=== PATIENT | male | born 2000 | race African-American/Black ===

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

== ENCOUNTER 2021-09-03 01:20 | Emergency (ER) | payer MEDICAID ==
[~2021-09-03] VITALS: Ht 182.9 cm; Wt 77.1 kg
[2021-09-03] MEDS ORDERED: HALOPERIDOL LACTATE INJ 5 MG/ML VIAL ONE (01:27)
[2021-09-03] MEDS ORDERED: diphenhydrAMINE HCL 50 MG/ML VIAL ONE (01:27)
[2021-09-03] MEDS ORDERED: LORAZEPAM INJ 2 MG/ML VIAL ONE (01:27)
[2021-09-03] MEDS ORDERED: diphenhydrAMINE HCL 50 MG/ML VIAL IM ONE (01:30)
[2021-09-03] MEDS ORDERED: HALOPERIDOL LACTATE INJ 5 MG/ML VIAL IM ONE (01:30)
[2021-09-03] MEDS ORDERED: LORAZEPAM INJ 2 MG/ML VIAL IM ONE (01:30)
--- NOTE | 2021-09-03 01:45 | NUR ---
[place] TO ER BED 13. YELLING, SCAREAMING AND DELIRIOUS. NOT IN RESP DISTRESS. BROUGHT IN FOR FOR INGESTING MUSHROOMS. PT WAS REPORTED TO HAVE BEEN CLIMBING UP THE APRTMENT [employer]ILDING [employer]. PT WAS BROUGHT IN WITH [employer] AT BEDSIDE ON RESTRAINTS. WAS AT THE BEDSIDE FOR EVAL. PT REMAIN ON 2 POINTS RESTRAINT WITH SITTER AT [facility].
[2021-09-03 01:57] LABS: BASOPHILS % (AUTO) 0.1 % (0.0-2.0); EOSINOPHILS % (AUTO) 0.2 % (0.0-6.0); HEMATOCRIT 45 % (39-51); HEMOGLOBIN 14.7 g/dL (13.5-17.5); LYMPHOCYTES # (AUTO) 1.4 K/uL (0.8-4.8); LYMPHOCYTES % (AUTO) 8.9 % (20.0-44.0); MEAN CORPUSCULAR HGB CONC 33 g/dl (31.0-36.0); MEAN CORPUSCULAR VOLUME 91 fL (80-96); MONOCYTES # (AUTO) 0.9 K/uL (0.1-1.30); MONOCYTES % (AUTO) 5.9 % (2.0-12.0); NEUTROPHILS # (AUTO) 12.9 K/uL (1.8-8.9); NEUTROPHILS % (AUTO) 84.9 % (43.0-81.0); PLATELET COUNT (AUTO) 245 K/uL (150-450); RED BLOOD CELL COUNT(AUTO) 4.92 MIL/uL (4.5-6.0); WHITE BLOOD COUNT (AUTO) 15.2 K/uL (4.3-11.0)
[2021-09-03] MEDS ORDERED: LABETALOL HCL IV 100MG VIAL IV ONE (02:00)
[2021-09-03 02:06] LABS: CALCIUM, SERUM 8.8 mg/dL (8.5-10.1); CARBON DIOXIDE 23 mmol/L (21-32); CHLORIDE 101 mmol/L (98-107); CREATININE 1.6 mg/dL (0.6-1.3); GLUCOSE 185 mg/dL (74-106); POTASSIUM 3.7 mmol/L (3.5-5.1); SODIUM SERUM 137 mmol/L (136-145); UREA NITROGEN, BLOOD 11 mg/dL (7-18)
[2021-09-03 02:12] LABS: ALANINE AMINOTRANSFERASE 22 U/L (12-78); ALBUMIN 4.1 g/dL (3.4-5.0); ALCOHOL, BLOOD < 3 mg/dL (0-0); ALKALINE PHOSPHATASE 78 U/L (46-116); ASPARTATE AMINOTRANSFERASE 21 U/L (15-37); BILIRUBIN,DIRECT 0.2 mg/dL (0.0-0.2); BILIRUBIN,TOTAL 0.7 mg/dL (0.2-1.0); TOTAL PROTEIN, SERUM 7.2 g/dL (6.4-8.2)
[2021-09-03 02:17] LABS: ACETAMINOPHEN 0 ug/ml (10-30)
--- NOTE | 2021-09-03 02:30 | NUR ---
RESTRAINT ON LEFT UPPER EXTREMITY REMOVED. PT IS SLEAPING IN BED. 1 POINT REMAINED OF THIS TIME.
--- NOTE | 2021-09-03 02:45 | NUR ---
PT IS AWAKE, ALERT AND ORIENTED. ASKING ABOUT WHAT HAPPENED TO HIM. PT IS COOPERATIVE AND COMPLAINT. VERY APOLOGETIC OF HOW HE BEHAVED. ADMITS TO TAKING MUSHROOMS FOR THE FIRST TIME.
--- NOTE | 2021-09-03 02:45 | NUR ---
RIGHT UPPER EXTREMETY RESTRAINT REMOVED. PT IS AAO. COMPLIANT AND COOPERATIVE.
--- NOTE | 2021-09-03 02:52 | NUR ---
PT WAS ON THE PHONE WITH HIS MOTHER AND HE WILL BE PICKED UP. PT AMBULTED TO NURSING [facility] ON STABLE CONDITION.
[2021-09-03 03:21] VITALS: BP 135/80
--- NOTE | 2021-09-03 03:21 | NUR ---
Patient discharged to home in stable condition. Written and verbal after care instructions given. Patient verbalizes understanding of instruction.
--- NOTE | 2021-09-03 03:23 | NUR ---
PT PICKED UP BY HIS MOTHER. PT IS AMBULATORY ON STEADY.
== END 2021-09-03 03:23 | disposition home or self-care (01) ==
LOC: ER 01:26
DX: R45.851 Suicidal ideations (principal); R45.1 Restlessness and agitation; T40.995A Adverse effect of other psychodysleptics [hallucinogens], initial encounter; Y92.89 Other specified places as the place of occurrence of the external cause
CPT/HCPCS: 36415; 80048; 80076; 80143; 80320; 85025; 96372 ×2; 99284; J1200; J1630; J2060; G0480